=== PATIENT | male | born 1990 | race American Indian/Alaskan Native ===

== ENCOUNTER 2018-12-10 04:49 | Emergency (ER) | payer SELFPAY ==
[2018-12-10] MEDS ORDERED: IBUPROFEN 600 MG TAB PO ONE (05:15)
[2018-12-10] MEDS ORDERED: predniSONE 50 MG TAB PO ONE (05:15)
[2018-12-10] MEDS ORDERED: LIDOCAINE VISCOUS 2% 15 ML ORAL LIQD PO ONE (05:16)
--- NOTE | 2018-12-10 05:21 | Emergency Department Report ---
ED General Adult HPI - General Chief complaint: Sore Throat Stated complaint: SORE THROAT Source: patient Mode of arrival: Ambulatory Limitations: No Limitations - History of Present Illness Initial comments: Patient is a 28 yo AA male with no past medical history who presents to the ED with c/o acute onset persistent sore throat, dysphagia and swollen tonsils for the last 2 days. Patient states that some other people at his work place have had similar symptoms. Patient denies fever, chills, dizziness, cough, nasal and sinus congestion, abdominal pain or chest pain and nausea and vomiting. MD Complaint: sore throat -: Sudden, days(s) (2) Location: mouth Severity scale (0 -10): 7 Quality: aching, sharp, constant Consistency: constant Improves with: none Worsens with: eating Associated Symptoms: denies other symptoms. denies: confusion, chest pain, cough, diaphoresis, fever/chills, headaches, loss of appetite, malaise, nausea/vomiting, rash, seizure, shortness of breath, syncope, weakness, other Treatments Prior to Arrival: none - Related Data Previous Rx's Medication Instructions Recorded Last Taken Type Ibuprofen [Motrin] 600 mg PO Q8H PRN #24 tablet 12/10/18 Unknown Rx Lidocaine Viscous 2% 10 ml PO Q6H PRN #100 ml 12/10/18 Unknown Rx Penicillin V Potassium 500 mg PO Q6H #40 tablet 12/10/18 Unknown Rx predniSONE [Deltasone] 40 mg PO QDAY #10 tab 12/10/18 Unknown Rx ED Review of Systems ROS: Stated complaint: SORE THROAT Other details as noted in HPI Constitutional: denies: chills, fever Eyes: denies: eye pain, eye discharge, vision change ENT: throat pain, congestion. denies: ear pain Respiratory: denies: cough, shortness of breath, wheezing Cardiovascular: denies: chest pain, palpitations Endocrine: no symptoms reported Gastrointestinal: denies: abdominal pain, nausea, vomiting, diarrhea Genitourinary: denies: urgency, dysuria Musculoskeletal: denies: back pain, joint swelling, arthralgia Skin: denies: rash, lesions Neurological: denies: headache, weakness, paresthesias Psychiatric: denies: anxiety, depression Hematological/Lymphatic: denies: easy bleeding, easy bruising ED Past Medical Hx - Past Medical History Previous Medical History?: No - Surgical History Past Surgical History?: No - Social History Smoking Status: Current Every Day Smoker Substance Use Type: Marijuana - Medications Home Medications: Home Medications Medication Instructions Recorded Confirmed Last Taken Type Ibuprofen [Motrin] 600 mg PO Q8H PRN #24 tablet 12/10/18 Unknown Rx Lidocaine Viscous 2% 10 ml PO Q6H PRN #100 ml 12/10/18 Unknown Rx Penicillin V Potassium 500 mg PO Q6H #40 tablet 12/10/18 Unknown Rx predniSONE [Deltasone] 40 mg PO QDAY #10 tab 12/10/18 Unknown Rx ED Physical Exam - General Limitations: No Limitations General appearance: alert, in no apparent distress - Head Head exam: Present: atraumatic, normocephalic, normal inspection - Eye Eye exam: Present: normal appearance, PERRL, EOMI Pupils: Present: normal accommodation - ENT ENT exam: Present: mucous membranes moist, TM's normal bilaterally, normal external ear exam, other (swollen erythematous oropharynx and left tonsils with white exudates ) - Neck Neck exam: Present: normal inspection, lymphadenopathy - Respiratory Respiratory exam: Present: normal lung sounds bilaterally. Absent: respiratory distress, wheezes, chest wall tenderness, accessory muscle use, decreased breath sounds - Cardiovascular Cardiovascular Exam: Present: normal rhythm, tachycardia, normal heart sounds. Absent: systolic murmur, diastolic murmur, rubs, gallop - GI/Abdominal GI/Abdominal exam: Present: soft, normal bowel sounds. Absent: tenderness, guarding, rebound, hyperactive bowel sounds, hypoactive bowel sounds, organomegaly, mass - Rectal Rectal exam: Present: deferred - Extremities Exam Extremities exam: Present: normal inspection, full ROM, normal capillary refill - Back Exam Back exam: Present: normal inspection, full ROM. Absent: tenderness, CVA tenderness (R), CVA tenderness (L), muscle spasm, paraspinal tenderness, vertebral tenderness - Neurological Exam Neurological exam: Present: alert, oriented X3, CN II-XII intact, normal gait, reflexes normal - Psychiatric Psychiatric exam: Present: normal affect, normal mood - Skin Skin exam: Present: warm, dry, intact, normal color. Absent: rash ED Course Vital Signs 12/10/18 04:50 Temperature 99.7 F H Pulse Rate 109 H Respiratory 18 Rate Blood Pressure 139/77 O2 Sat by Pulse 97 Oximetry - Reevaluation(s) Reevaluation #1: 12/10/18 05:36 This is a 28-year-old male who presented to the ED with c/o acute onset persistent severe sore throat, dysphagia and painful swollen tonsils. In the ED, patient is alert and oriented x 3 and is in no acute distress but tachycardia in triage. Patient was treated for pain, and discharged home on pain medications and oral antibiotics based on the physical exam findings of acute tonsillitis with exudates suspicious for acute streptococcal pharyngitis. Patient was advised to return to the ED immediately if symptoms get worse, otherwise follow- up with his primary care physician in 7-10 days for reevaluation. ED Medical Decision Making - Medical Decision Making This is a 28-year-old male who presented to the ED with c/o acute onset persistent severe sore throat, dysphagia and painful swollen tonsils. In the ED, patient is alert and oriented x 3 and is in no acute distress but tachycardia in triage. Patient was treated for pain, and discharged home on pain medications and oral antibiotics based on the physical exam findings of acute tonsillitis with exudates suspicious for acute streptococcal pharyngitis. Patient was advised to return to the ED immediately if symptoms get worse, otherwise follow- up with his primary care physician in 7-10 days for reevaluation. - Differential Diagnosis acute pharyngitis; acute tonsillitis Critical care attestation.: If time is entered above; I have spent that time in minutes in the direct care of this critically ill patient, excluding procedure time. ED Disposition Clinical Impression: Acute bacterial tonsillitis Acute pharyngitis Qualifiers: Pharyngitis/tonsillitis etiology: other specified organisms Qualified Code(s): J02.8 - Acute pharyngitis due to other specified organisms Disposition: DC-01 TO HOME OR SELFCARE Is pt being admited?: No Does the pt Need Aspirin: No Condition: Stable Instructions: Pharyngitis (ED), Tonsillitis (ED) Additional Instructions: Take medications with food, drink plenty of fluids and follow up with your Primary care Physician in 7-10 days. Return to the ED immediately if symptoms get worse Prescriptions: predniSONE [Deltasone] 40 mg PO QDAY #10 tab Lidocaine Viscous 2% 10 ml PO Q6H PRN #100 ml PRN Reason: Pain , Severe (7-10) Ibuprofen [Motrin] 600 mg PO Q8H PRN #24 tablet PRN Reason: Pain Penicillin V Potassium 500 mg PO Q6H #40 tablet Referrals: [facility] [Outside] - 3-5 Days Forms: Work/School Release Form(ED) Time of Disposition: 05:20 Print Language: ANGOLAN
[2018-12-10] MEDS ORDERED: AMOXICILLIN/K CLAV 875/125MG TAB PO ONE (05:25)
[2018-12-10 05:48] VITALS: BP 114/73
== END 2018-12-10 05:47 | disposition home or self-care (01) ==
LOC: ED 04:49
DX: J03.90 Acute tonsillitis, unspecified (principal); F17.200 Nicotine dependence, unspecified, uncomplicated; F12.10 Cannabis abuse, uncomplicated; Z79.899 Other long term (current) drug therapy
CPT/HCPCS: 99282; J7512

== ENCOUNTER 2018-12-22 15:42 | Emergency (ER) | payer SELFPAY ==
[2018-12-22 15:51] VITALS: BP 123/75
--- NOTE | 2018-12-22 15:54 | Event Note ---
ED Screening Note Date of service: 12/22/18 Time: 15:51 ED Screening Note: This is a 28 y.o. M. that presents to the ER with pelvic pain and hematuria since last night. Patient report pain started last night and hematuria today. + Urinary frequency, urgency - dysuria, penile discharge, testicular swelling/pain This initial assessment/diagnostic orders/clinical plan/treatment(s) is/are subject to change based on patients health status, clinical progression and re- assessment by fellow clinical providers in the ED. Further treatment and workup at subsequent clinical providers discretion. Patient/guardian urged not to elope from the ED as their condition may be serious if not clinically assessed and managed. Initial orders include: Labs and CT of abdomen pelvis
[2018-12-22 16:41] LABS: Bacteria,Urine 1+ /HPF (Negative); Bilirubin,Urine NEG (Negative); Blood,Urine MOD (Negative); Color,Urine Yellow (Yellow); Mucus,Urine FEW /HPF
[2018-12-22 16:42] LABS: WBC,Urine > 182.0 /HPF (0.0-6.0)
[2018-12-22 16:46] LABS: Basophils % (Auto) 0.3 % (0.0-1.8); Eosinophils # (Auto) 0.1 K/mm3 (0.0-0.4); Eosinophils % (Auto) 1.4 % (0.0-4.3); Hematocrit 34.9 % (35.5-45.6); Hemoglobin 11.7 gm/dl (11.8-15.2); Lymphocytes # (Auto) 2.4 K/mm3 (1.2-5.4); Lymphocytes % (Auto) 24.1 % (13.4-35.0); Mean Corpuscular HGB Conc 34 % (32-34); Mean Corpuscular Volume 95 fl (84-94); Monocytes % (Auto) 10.1 % (0.0-7.3); Platelet Count 378 K/mm3 (140-440); Red Blood Count 3.67 M/mm3 (3.65-5.03); Red Cell Distribution Width 13.3 % (13.2-15.2)
--- NOTE | 2018-12-22 16:58 | Cat Scan Report ---
. CT of the abdomen and pelvis without contrast INDICATION: Lower abdominal pain COMPARISON: None FINDINGS: Lung bases are clear. The liver, spleen, pancreas, adrenal glands and kidneys all appear no rmal. There are no calculi seen in either kidney. No hydronephrosis or perinephric edema. No gross re nal masses. No definite gallbladder or biliary tree abnormality. No fluid or adenopathy in the upper abdomen. CT of the pelvis shows a normal appendix. Prostate is not enlarged. No pelvic or inguinal adenopathy. No diverticulosis or diverticulitis. No hernia or bowel obstruction. No significant skeletal lesion. IMPRESSION: Negative study. No kidney stones or inflammatory process seen. Automated exposure control was utilized to diminish radiation dose. Signer Name: Rubén Quintero MD Signed: 12/22/2018 4:54 PM Workstation Name: [id number]
[2018-12-22 17:20] LABS: Alanine Aminotransferase 33 units/L (7-56); Albumin 4.6 g/dL (3.9-5); BUN/Creatinine Ratio 9; Blood Urea Nitrogen 7 mg/dL (9-20); Calcium 9.3 mg/dL (8.4-10.2); Hemolysis Index 10
[2018-12-22] MEDS ORDERED: TORADOL IV ONE (19:35)
[2018-12-22] MEDS ORDERED: ZOFRAN IV ONE (19:35)
[2018-12-22] MEDS ORDERED: ROCEPHIN/NS 1 GM/50 ML 1 GM/50 ML BAG IV ONE (19:35)
[2018-12-22] MEDS ORDERED: NACL 0.9% 1000 ML 1,000 ML IV ONE (19:35)
[2018-12-22] MEDS ORDERED: ZITHROMAX PO ONE (19:38)
--- NOTE | 2018-12-22 22:58 | Emergency Department Report ---
ED Abdominal Pain HPI - General Chief Complaint: Abdominal Pain Stated Complaint: POSS BLADDER INFECTION Time Seen by Provider: 12/22/18 15:50 Source: patient Mode of arrival: Ambulatory Limitations: No Limitations - History of Present Illness Initial Comments: Pt is a 28 y.o. M. that presents to the ER with pelvic pain and hematuria since last night. Denies history of renal stones, states hematuria ,dysuria ,frequency ,nausea /vomiting. Patient denies penile discharge, no scrotal swelling. There are no exacerbating or relieving factors MD Complaint: abdominal pain, flank pain Onset/Timin -: days(s) Location: suprapubic, bilateral flank Migration to: bilateral flank Severity: moderate Severity scale (0 -10): 8 Quality: sharp Consistency: constant Improves With: nothing Worsens With: nothing Associated Symptoms: nausea, vomiting, fever, chills - Related Data Previous Rx's Medication Instructions Recorded Last Taken Type Ibuprofen [Motrin] 600 mg PO Q8H PRN #24 tablet 12/10/18 Unknown Rx Lidocaine Viscous 2% 10 ml PO Q6H PRN #100 ml 12/10/18 Unknown Rx Penicillin V Potassium 500 mg PO Q6H #40 tablet 12/10/18 Unknown Rx predniSONE [Deltasone] 40 mg PO QDAY #10 tab 12/10/18 Unknown Rx Doxycycline Hyclate [Doxycycline 100 mg PO BID 10 Days #20 tab 12/22/18 Unknown Rx Hyclate TAB] Allergies Allergy/AdvReac Type Severity Reaction Status Date / Time No Known Allergies Allergy Unverified 12/10/18 05:46 ED Review of Systems ROS: Stated complaint: POSS BLADDER INFECTION Other details as noted in HPI Constitutional: denies: chills, fever Eyes: denies: eye pain, eye discharge, vision change ENT: denies: ear pain, throat pain Respiratory: denies: cough, shortness of breath, wheezing Cardiovascular: denies: chest pain, palpitations Endocrine: no symptoms reported Gastrointestinal: abdominal pain, nausea, vomiting. denies: diarrhea, constipation, melena Genitourinary: urgency, dysuria, frequency, hematuria. denies: discharge, testicular pain, testicular mass Musculoskeletal: back pain (bilat flank) Skin: denies: rash, lesions Neurological: denies: headache, weakness, paresthesias Psychiatric: denies: anxiety, depression Hematological/Lymphatic: denies: as per HPI, easy bleeding, easy bruising ED Past Medical Hx - Past Medical History Previous Medical History?: No - Surgical History Past Surgical History?: No - Social History Smoking Status: Current Every Day Smoker Substance Use Type: None - Medications Home Medications: Home Medications Medication Instructions Recorded Confirmed Last Taken Type Ibuprofen [Motrin] 600 mg PO Q8H PRN #24 tablet 12/10/18 Unknown Rx Lidocaine Viscous 2% 10 ml PO Q6H PRN #100 ml 12/10/18 Unknown Rx Penicillin V Potassium 500 mg PO Q6H #40 tablet 12/10/18 Unknown Rx predniSONE [Deltasone] 40 mg PO QDAY #10 tab 12/10/18 Unknown Rx Doxycycline Hyclate [Doxycycline 100 mg PO BID 10 Days #20 tab 12/22/18 Unknown Rx Hyclate TAB] ED Physical Exam - General Limitations: No Limitations General appearance: alert, in no apparent distress - Head Head exam: Present: atraumatic, normocephalic - Eye Eye exam: Present: normal appearance, PERRL, EOMI Pupils: Present: normal accommodation - ENT ENT exam: Present: mucous membranes moist - Neck Neck exam: Present: normal inspection, full ROM. Absent: tenderness, lymphadenopathy - Respiratory Respiratory exam: Present: normal lung sounds bilaterally. Absent: respiratory distress, wheezes, stridor, chest wall tenderness - Cardiovascular Cardiovascular Exam: Present: regular rate, normal rhythm, normal heart sounds. Absent: systolic murmur, diastolic murmur, rubs, gallop - GI/Abdominal GI/Abdominal exam: Present: soft, normal bowel sounds. Absent: distended, tenderness, guarding, rebound, rigid, bruit, hernia - Rectal Rectal exam: Present: deferred - exam: Present: normal inspection, circumcision. Absent: testicular tenderness, urethral discharge, scrotal swelling, vertical testicular lie External exam: Present: normal external exam. Absent: erythema, swelling, lesions, lacerations, ecchymosis - Extremities Exam Extremities exam: Present: normal inspection, full ROM. Absent: tenderness, pedal edema - Back Exam Back exam: Present: normal inspection, full ROM. Absent: tenderness, CVA tenderness (R), CVA tenderness (L), muscle spasm, rash noted - Neurological Exam Neurological exam: Present: alert, oriented X3, CN II-XII intact, normal gait - Psychiatric Psychiatric exam: Present: normal affect, normal mood - Skin Skin exam: Present: warm, dry, intact, normal color. Absent: rash ED Course Vital Signs 12/22/18 15:46 Temperature 99.0 F Pulse Rate 99 H Respiratory 18 Rate Blood Pressure 123/75 O2 Sat by Pulse 97 Oximetry ED Medical Decision Making - Lab Data Result diagrams: 12/22/18 16:00 12/22/18 16:00 Labs 12/22/18 12/22/18 12/22/18 16:00 16:00 16:20 WBC 10.0 RBC 3.67 Hgb 11.7 L Hct 34.9 L MCV 95 H MCH 32 MCHC 34 RDW 13.3 Plt Count 378 Lymph % (Auto) 24.1 [place] % (Auto) 10.1 H Eos % (Auto) 1.4 Baso % (Auto) 0.3 Lymph # 2.4 [place] # 1.0 H Eos # 0.1 Baso # 0.0 Seg Neutrophils % 64.1 Seg Neutrophils # 6.4 Sodium 142 Potassium 3.9 Chloride 101.9 Carbon Dioxide 28 Anion Gap 16 BUN 7 L Creatinine 0.8 Estimated GFR > 60 BUN/Creatinine Ratio 9 Glucose 102 H Calcium 9.3 Total Bilirubin 0.30 AST 20 ALT 33 Alkaline Phosphatase 92 Total Protein 8.1 Albumin 4.6 Albumin/Globulin Ratio 1.3 Urine Color Yellow Urine Turbidity Cloudy Urine pH 8.0 H Ur Specific [place] 1.016 Urine Protein 100 mg/dl Urine Glucose (UA) Neg Urine Ketones Neg Urine Blood Mod Urine Nitrite Neg Urine Bilirubin Neg Urine Urobilinogen 2.0 Ur Leukocyte Esterase Lg Urine WBC (Auto) > 182.0 H Urine RBC (Auto) 68.0 U Epithel Cells (Auto) < 1.0 Urine Bacteria (Auto) 1+ Urine Mucus Few - Radiology Data Radiology results: report reviewed, image reviewed Ordering Physician: CASSANDRA BRENNAN Date of Service: 12/22/18 Procedure(s): CT abdomen pelvis wo con Accession Number(s): [id number] cc: CASSANDRA BRENNAN . CT of the abdomen and pelvis without contrast INDICATION: Lower abdominal pain COMPARISON: None FINDINGS: Lung bases are clear. The liver, spleen, pancreas, adrenal glands and kidneys all appear normal. There are no calculi seen in either kidney. No hydronephrosis or perinephric edema. No gross renal masses. No definite gallbladder or biliary tree abnormality. No fluid or adenopathy in the upper abdomen. CT of the pelvis shows a normal appendix. Prostate is not enlarged. No pelvic or inguinal adenopathy. No diverticulosis or diverticulitis. No hernia or bowel obstruction. No significant skeletal lesion. IMPRESSION: Negative study. No kidney stones or inflammatory process seen. Automated exposure control was utilized to diminish radiation dose. Signer Name: Rubén Quintero MD Signed: 12/22/2018 4:54 PM Workstation Name: [id number] Transcribed By: FRANK Dictated By: Rubén Quintero MD Electronically Authenticated By: Rubén Quintero MD Signed Date/Time: 12/22/181653 DD/ 48 TD/TT: - Medical Decision Making ct bilateral renal stones, no abdominal abnormalities, UA noted leukocytes WBCs red blood cell, there is no hernia, patient treated for UTI patient treated for, possible STI exposure, DC'd home with doxycycline by mouth twice a day for 10 days patient will follow with PCP in 2-3 days return to ED should symptoms worsen. . Patient DC to home in stable condition at this time Critical care attestation.: If time is entered above; I have spent that time in minutes in the direct care of this critically ill patient, excluding procedure time. ED Disposition Clinical Impression: Dysuria Abdominal pain Qualifiers: Abdominal location: lower abdomen, unspecified Qualified Code(s): R10.30 - Lower abdominal pain, unspecified Disposition: DC-01 TO HOME OR SELFCARE Is pt being admited?: No Does the pt Need Aspirin: No Condition: Stable Instructions: Acute Hematuria (ED), Dysuria (ED), Acute Abdominal Pain (ED) Prescriptions: Doxycycline Hyclate [Doxycycline Hyclate TAB] 100 mg PO BID 10 Days #20 tab Referrals: [facility] [Outside] - 3-5 Days Forms: Work/School Release Form(ED) Time of Disposition: 23:02
== END 2018-12-22 23:17 | disposition home or self-care (01) ==
LOC: ED 15:42
DX: R30.0 Dysuria (principal); R31.9 Hematuria, unspecified; R11.2 Nausea with vomiting, unspecified; R10.30 Lower abdominal pain, unspecified; F17.200 Nicotine dependence, unspecified, uncomplicated; Z79.899 Other long term (current) drug therapy
CPT/HCPCS: 36415; 74176; 80053; 81001; 85025; 96365; 96375; 99284; J0696; J1885; J2405; J7030